=== PATIENT | male | born 1985 ===

== ENCOUNTER 2019-01-13 03:37 | Emergency (ER) | payer SELFPAY ==
[2019-01-13] MEDS ORDERED: DECADRON IM ONE (05:36)
[2019-01-13] MEDS ORDERED: TORADOL IM ONE (05:36)
--- NOTE | 2019-01-13 06:02 | Emergency Department Report ---
ED General Adult HPI - General Chief complaint: Earache Stated complaint: LEFT EAR SWOLLEN Time Seen by Provider: 01/13/19 05:10 Source: patient Mode of arrival: Ambulatory Limitations: No Limitations - History of Present Illness Initial comments: Patient is a 34-year-old -[place] male with no past medical history who presents to the ED with complaint of acute onset persistent diarrhea and left ear pain for the last 3 days. Patient states that the left ear is swollen and somewhat painful with decreased hearing acuity. Patient denies dizziness, nausea, vomiting, purulent discharge, sinus congestion, sore throat, headache,change in vision, fever, chills, abdominal pain, or loss of consciousness, traumatic injury or hearing loss MD Complaint: left ear pain -: Sudden, days(s) (3) Location: face (left ear ) Radiation: non-radiation Severity scale (0 -10): 5 Quality: aching, sharp, constant Consistency: constant Improves with: none Worsens with: none Associated Symptoms: denies other symptoms. denies: confusion, chest pain, cough, diaphoresis, fever/chills, headaches, loss of appetite, malaise, nausea/vomiting, rash, seizure, shortness of breath, syncope, weakness Treatments Prior to Arrival: none - Related Data Previous Rx's Medication Instructions Recorded Last Taken Type Acetaminophen/Codeine [Tylenol 1 tab PO Q6H PRN #15 tab 01/13/19 Unknown Rx /Codeine # 3 tab] Clindamycin [Clindamycin CAP] 300 mg PO Q6HR #80 capsule 01/13/19 Unknown Rx Ibuprofen [Motrin] 600 mg PO Q8H PRN #20 tablet 01/13/19 Unknown Rx Ofloxacin 0.3% [Floxin 0.3% Otic] 1 drop OT Q12H #5 ml 01/13/19 Unknown Rx Prednisone [predniSONE 10 mg 10 mg PO .TAPER #21 tab.ds.pk 01/13/19 Unknown Rx (6-Day Pack, 21 Tabs)] Allergies Allergy/AdvReac Type Severity Reaction Status Date / Time No Known Allergies Allergy Verified 01/13/19 03:46 ED Review of Systems ROS: Stated complaint: LEFT EAR SWOLLEN Other details as noted in HPI Constitutional: denies: chills, fever Eyes: denies: eye pain, eye discharge, vision change ENT: ear pain (left). denies: throat pain, dental pain, epistaxis, congestion Respiratory: denies: cough, shortness of breath, wheezing Cardiovascular: denies: chest pain, palpitations Endocrine: no symptoms reported Gastrointestinal: denies: abdominal pain, nausea, diarrhea Genitourinary: denies: urgency, dysuria Musculoskeletal: denies: back pain, joint swelling, arthralgia Skin: denies: rash, lesions Neurological: denies: headache, weakness, paresthesias Psychiatric: denies: anxiety, depression Hematological/Lymphatic: denies: easy bleeding, easy bruising ED Past Medical Hx - Past Medical History Previous Medical History?: No - Surgical History Past Surgical History?: No - Social History Smoking Status: Current Every Day Smoker Substance Use Type: None - Medications Home Medications: Home Medications Medication Instructions Recorded Confirmed Last Taken Type Acetaminophen/Codeine [Tylenol 1 tab PO Q6H PRN #15 tab 01/13/19 Unknown Rx /Codeine # 3 tab] Clindamycin [Clindamycin CAP] 300 mg PO Q6HR #80 capsule 01/13/19 Unknown Rx Ibuprofen [Motrin] 600 mg PO Q8H PRN #20 tablet 01/13/19 Unknown Rx Ofloxacin 0.3% [Floxin 0.3% Otic] 1 drop OT Q12H #5 ml 01/13/19 Unknown Rx Prednisone [predniSONE 10 mg 10 mg PO .TAPER #21 tab.ds.pk 01/13/19 Unknown Rx (6-Day Pack, 21 Tabs)] ED Physical Exam - General Limitations: No Limitations General appearance: alert, in no apparent distress - Head Head exam: Present: atraumatic, normocephalic, normal inspection - Eye Eye exam: Present: normal appearance, PERRL, EOMI Pupils: Present: normal accommodation - ENT ENT exam: Present: normal exam, normal orophraynx, mucous membranes moist, other (swollen left ear canal with tenderness; purulent discharge) - Neck Neck exam: Present: normal inspection, full ROM, lymphadenopathy. Absent: tenderness, meningismus, thyromegaly - Respiratory Respiratory exam: Present: normal lung sounds bilaterally. Absent: respiratory distress, wheezes, rhonchi, chest wall tenderness, accessory muscle use, decreased breath sounds - Cardiovascular Cardiovascular Exam: Present: regular rate, normal rhythm, normal heart sounds. Absent: systolic murmur, diastolic murmur, rubs, gallop - GI/Abdominal GI/Abdominal exam: Present: soft, normal bowel sounds. Absent: tenderness, guarding, rebound, hyperactive bowel sounds, hypoactive bowel sounds, mass, bruit, pulsatile mass - Rectal Rectal exam: Present: deferred - Extremities Exam Extremities exam: Present: normal inspection, full ROM, normal capillary refill - Back Exam Back exam: Present: normal inspection, full ROM. Absent: tenderness, CVA tenderness (L), paraspinal tenderness, vertebral tenderness - Neurological Exam Neurological exam: Present: alert, oriented X3, CN II-XII intact, normal gait, reflexes normal - Psychiatric Psychiatric exam: Present: normal affect, normal mood - Skin Skin exam: Present: warm, dry, intact, normal color. Absent: rash ED Course Vital Signs 01/13/19 03:43 Temperature 97.6 F Pulse Rate 68 Respiratory 18 Rate Blood Pressure 150/103 O2 Sat by Pulse 100 Oximetry - Reevaluation(s) Reevaluation #1: 01/13/19 06:11 This is a 33-year-old, male with no past medical history presented to the ED with severe left ear pain. In the ED patient is alert and oriented 3 and is not in distress but with pain. Patient was treated for pain in the ED and discharged home on pain medications and antibiotics, and given a referral to an ENT physician Dr. Boone for follow-up. Patient was advised to return to the ED immediately if symptoms get worse. ED Medical Decision Making - Medical Decision Making This is a 33-year-old, male with no past medical history presented to the ED with severe left ear pain. In the ED patient is alert and oriented 3 and is not in distress but with pain. Patient was treated for pain in the ED and discharged home on pain medications and antibiotics, and given a referral to an ENT physician Dr. Boone for follow-up. Patient was advised to return to the ED immediately if symptoms get worse. - Differential Diagnosis otitis media, otitis externa, lymphadenopathy Critical care attestation.: If time is entered above; I have spent that time in minutes in the direct care of this critically ill patient, excluding procedure time. ED Disposition Clinical Impression: Pain in left ear Acute suppurative otitis media Qualifiers: Laterality: left Recurrence: non-recurrent Spontaneous tympanic membrane rupture: without spontaneous rupture Qualified Code(s): H66.002 - Acute suppurative otitis media without spontaneous rupture of ear drum, left ear Disposition: DC-01 TO HOME OR SELFCARE Is pt being admited?: No Does the pt Need Aspirin: No Condition: Stable Instructions: Otitis Media (ED) Additional Instructions: Medication, drink plenty of fluids and follow-up with your primary care physician in 5-7 days for reevaluation. Return to the ED immediately if symptoms get worse. Prescriptions: Clindamycin [Clindamycin CAP] 300 mg PO Q6HR #80 capsule Ofloxacin 0.3% [Floxin 0.3% Otic] 1 drop OT Q12H #5 ml Ibuprofen [Motrin] 600 mg PO Q8H PRN #20 tablet PRN Reason: Pain Prednisone [predniSONE 10 mg (6-Day Pack, 21 Tabs)] 10 mg PO .TAPER #21 tab. ds.pk Acetaminophen/Codeine [Tylenol /Codeine # 3 tab] 1 tab PO Q6H PRN #15 tab PRN Reason: Pain , Severe (7-10) Referrals: YAJAIRA BOONE MD [Staff Physician] - 7-10 days Forms: Work/School Release Form(ED) Time of Disposition: 06:05 Print Language: CZECH
[2019-01-13 06:28] VITALS: BP 128/78
== END 2019-01-13 06:29 | disposition home or self-care (01) ==
LOC: ED 03:37
DX: H66.002 Acute suppurative otitis media without spontaneous rupture of ear drum, left ear (principal); F17.200 Nicotine dependence, unspecified, uncomplicated; Z79.899 Other long term (current) drug therapy
CPT/HCPCS: 96372; 99282; J1100; J1885

== ENCOUNTER 2019-05-28 14:32 | Emergency (ER) | payer SELFPAY ==
--- NOTE | 2019-05-28 14:56 | Emergency Department Report ---
Blank Doc - Documentation Documentation: 34-year-old male that presents with left testicular pain and swelling. This initial assessment/diagnostic orders/clinical plan/treatment(s) is/are subject to change based on patient's health status, clinical progression and re- assessment by fellow clinical providers in the ED. Further treatment and workup at subsequent clinical providers discretion. Patient/guardians urged not to elope from the ED as their condition may be serious if not clinically assessed and managed. Initial orders include: 1- Patient sent to [facility] for further evaluation and treatment 2- Stat doppler [employer] has been notified
--- NOTE | 2019-05-28 15:44 | Emergency Department Report ---
ED Male HPI - General Chief complaint: Urogenital-Male Stated complaint: SWOLLEN TESTICLE/SCROTUM Time Seen by Provider: 05/28/19 14:54 Source: patient Mode of arrival: Ambulatory Limitations: No Limitations - History of Present Illness Initial comments: Patient is a 34-year-old male that presents emergency room with complaints of left testicle pain and swelling. Patient states his pain is a 7 out of 10. Patient states pain is worse with movement and better with rest. Patient states the pain is worse with palpation. Patient denies dysuria. Patient denies fever or chills. Patient denies penile discharge. Patient states his subsequent going on for 2 weeks. Patient states his pain is worsening. MD Complaint: testicle pain, testicle swelling -: Sudden Location: left testicle Radiation: none Severity: severe Severity scale (0 -10): 7 Quality: sharp Consistency: constant Improves with: rest Worsens with: palpation, movement swelling - Related Data Sexually active: Yes Previous Rx's Medication Instructions Recorded Last Taken Type Acetaminophen/Codeine [Tylenol 1 tab PO Q6H PRN #15 tab 01/13/19 Unknown Rx /Codeine # 3 tab] Clindamycin [Clindamycin CAP] 300 mg PO Q6HR #80 capsule 01/13/19 Unknown Rx Ibuprofen [Motrin] 600 mg PO Q8H PRN #20 tablet 01/13/19 Unknown Rx Ofloxacin 0.3% [Floxin 0.3% Otic] 1 drop OT Q12H #5 ml 01/13/19 Unknown Rx Prednisone [predniSONE 10 mg 10 mg PO .TAPER #21 tab.ds.pk 01/13/19 Unknown Rx (6-Day Pack, 21 Tabs)] Allergies Allergy/AdvReac Type Severity Reaction Status Date / Time No Known Allergies Allergy Verified 01/13/19 03:46 ED Review of Systems ROS: Stated complaint: SWOLLEN TESTICLE/SCROTUM Other details as noted in HPI Constitutional: denies: chills, fever Eyes: denies: eye pain, eye discharge, vision change ENT: denies: ear pain, throat pain Respiratory: denies: cough, shortness of breath, wheezing Cardiovascular: denies: chest pain, palpitations Endocrine: no symptoms reported Gastrointestinal: denies: abdominal pain, nausea, diarrhea Genitourinary: testicular pain. denies: urgency, dysuria Musculoskeletal: denies: back pain, joint swelling, arthralgia Skin: denies: rash, lesions Neurological: denies: headache, weakness, paresthesias Psychiatric: denies: anxiety, depression Hematological/Lymphatic: denies: easy bleeding, easy bruising ED Past Medical Hx - Past Medical History Previous Medical History?: No - Surgical History Past Surgical History?: No - Family History Family history: no significant - Social History Smoking Status: Current Every Day Smoker Substance Use Type: Marijuana - Medications Home Medications: Home Medications Medication Instructions Recorded Confirmed Last Taken Type Acetaminophen/Codeine [Tylenol 1 tab PO Q6H PRN #15 tab 01/13/19 Unknown Rx /Codeine # 3 tab] Clindamycin [Clindamycin CAP] 300 mg PO Q6HR #80 capsule 01/13/19 Unknown Rx Ibuprofen [Motrin] 600 mg PO Q8H PRN #20 tablet 01/13/19 Unknown Rx Ofloxacin 0.3% [Floxin 0.3% Otic] 1 drop OT Q12H #5 ml 01/13/19 Unknown Rx Prednisone [predniSONE 10 mg 10 mg PO .TAPER #21 tab.ds.pk 01/13/19 Unknown Rx (6-Day Pack, 21 Tabs)] ED Physical Exam - General Limitations: No Limitations General appearance: alert, in no apparent distress - Head Head exam: Present: atraumatic, normocephalic - Eye Eye exam: Present: normal appearance - ENT ENT exam: Present: mucous membranes moist - Neck Neck exam: Present: normal inspection - Respiratory Respiratory exam: Present: normal lung sounds bilaterally. Absent: respiratory distress, wheezes - Cardiovascular Cardiovascular Exam: Present: regular rate, normal rhythm. Absent: systolic murmur, diastolic murmur, rubs, gallop - GI/Abdominal GI/Abdominal exam: Present: soft, normal bowel sounds. Absent: distended, tenderness, guarding - Rectal Rectal exam: Present: deferred - exam: Present: testicular tenderness (left testicular tenderness.), scrotal swelling, circumcision. Absent: urethral discharge, vertical testicular lie External exam: Present: normal external exam - Extremities Exam Extremities exam: Present: normal inspection - Back Exam Back exam: Present: normal inspection - Neurological Exam Neurological exam: Present: alert, oriented X3 - Psychiatric Psychiatric exam: Present: normal affect, normal mood - Skin Skin exam: Present: warm, dry, intact, normal color. Absent: rash ED Course Vital Signs 05/28/19 05/28/19 14:49 15:53 Temperature 98.5 F Pulse Rate 78 72 Respiratory 18 16 Rate Blood Pressure 125/86 139/103 [Right] O2 Sat by Pulse 100 100 Oximetry - Reevaluation(s) Reevaluation #1: I discussed all results with patient. Discussed plan of care with patient. Patient agrees to plan of care. Patient will be discharged home. Patient is stable for discharge. Patient given discharge instructions. Patient voiced understanding of discharge instructions. 05/28/19 16:51 - Consultations Consultation #1: I discussed case with Dr. Curtis, urologist. Dr. Carmen recommends warm compress and ibuprofen and discharged and to follow up with a urologist. 05/28/19 16:34 ED Medical Decision Making - Radiology Data Radiology results: report reviewed TESTICULAR ULTRASOUND INDICATION: Left testicular pain and swelling. COMPARISON None available. FINDINGS: RIGHT TESTICLE: Normal in size and appearance, measuring 4.3 x 2.2 x 3.0 cm with expected color flow. RIGHT EPIDIDYMIS: No significant abnormality. LEFT TESTICLE: Normal in size and appearance, measuring 3.6 x 2.5 x 2.9 cm with expected color flow. LEFT EPIDIDYMIS: No significant abnormality. HYDROCELE: There is a small to moderate left hydrocele measuring up to 4.6 x 3.2 cm. No right hydrocele is seen. VARICOCELE: None seen. ADDITIONAL FINDINGS: None. IMPRESSION: Small to moderate left hydrocele. - Medical Decision Making Patient is a 34-year-old mellitus emergency room complaining of left testicular pain and swelling. Patient ultrasound done and shows a hydrocele. Patient is stable for discharge. Patient discharged home. Patient will require follow-up with primary care and a urologist. Patient will also have to do warm compresses and anti-inflammatories. - Differential Diagnosis testicular pain, torsion, epididymitis, hydrocele Critical care attestation.: If time is entered above; I have spent that time in minutes in the direct care of this critically ill patient, excluding procedure time. ED Disposition Clinical Impression: Left testicular pain, Hydrocele of testis Disposition: DC-01 TO HOME OR SELFCARE Is pt being admited?: No Does the pt Need Aspirin: No Condition: Stable Instructions: Hydrocele (ED), Testicle Pain (ED) Additional Instructions: Patient to follow up with primary care in 2-3 days. Patient to follow up with urologist in 2 days. Patient to return to your condition worsens. Patient to rest. Patient to apply warm compress to his testicles 7 times per day. Patient to return to ER if condition worsens or changes or new symptoms arise. Patient to take Tylenol or ibuprofen when necessary for pain. Patient to avoid sexual activity until cleared by urologist. Patient to avoid sports and physical electively until cleared by urologist and primary care. Referrals: DANE CRAMER MD [Staff Physician] - [facility] Time of Disposition: 16:56
[2019-05-28 15:55] VITALS: BP 139/103
--- NOTE | 2019-05-28 16:03 | Ultrasound Report ---
TESTICULAR ULTRASOUND INDICATION: Left testicular pain and swelling. COMPARISON None available. FINDINGS: RIGHT TESTICLE: Normal in size and appearance, measuring 4.3 x 2.2 x 3.0 cm with expected color flow. RIGHT EPIDIDYMIS: No significant abnormality. LEFT TESTICLE: Normal in size and appearance, measuring 3.6 x 2.5 x 2.9 cm with expected color flow. LEFT EPIDIDYMIS: No significant abnormality. HYDROCELE: There is a small to moderate left hydrocele measuring up to 4.6 x 3.2 cm. No right hydroce le is seen. VARICOCELE: None seen. ADDITIONAL FINDINGS: None. IMPRESSION: Small to moderate left hydrocele. Signer Name: Patrick Bernard MD Signed: 05/28/2019 3:59 PM Workstation Name: [id number]
== END 2019-05-28 17:11 | disposition home or self-care (01) ==
LOC: ED 14:32
DX: N43.3 Hydrocele, unspecified (principal); F12.10 Cannabis abuse, uncomplicated; F17.200 Nicotine dependence, unspecified, uncomplicated; Z79.899 Other long term (current) drug therapy
CPT/HCPCS: 93975